=== PATIENT | female | born 1975 | race Caucasian/White ===

== ENCOUNTER 2016-11-22 04:43 | Emergency (ER) | payer SELFPAY ==
[2016-11-22] MEDS ORDERED: ONDANSETRON 4 MG VIAL ONE (05:24)
[2016-11-22] MEDS ORDERED: MORPHINE 4 MG/ML SYR ONE (05:24)
== END 2016-11-22 07:51 | disposition home or self-care (01) ==
LOC: ER 04:43
DX: R10.2 Pelvic and perineal pain (principal); N94.10 Unspecified dyspareunia; Z87.891 Personal history of nicotine dependence
CPT/HCPCS: 36415; 74020; 76830; 80053; 83690; 85025; 96374; 96375

== ENCOUNTER 2016-11-24 09:24 | Emergency (ER) | payer SELFPAY ==
[2016-11-24] MEDS ORDERED: OPTIRAY 350 100 ML VIAL HMH IV ONE (09:25)
[2016-11-24] MEDS ORDERED: ONDANSETRON 4 MG VIAL ONE (15:01)
[2016-11-24] MEDS ORDERED: SODIUM CHLORIDE 0.9% 1,000 ML ONE (15:02)
== END 2016-11-24 18:21 | disposition home or self-care (01) ==
LOC: ER 09:24
DX: K52.9 Noninfective gastroenteritis and colitis, unspecified (principal); Z87.891 Personal history of nicotine dependence
CPT/HCPCS: 36415; 74177; 80053; 81001; 82274; 83690; 85025; 96361; 96374